=== PATIENT | male | born 1985 | race Caucasian/White ===

== ENCOUNTER 2018-02-17 15:44 | Emergency (ER) | payer SELFPAY, OTHER ==
[2018-02-17] MEDS: CHLORPROMAZINE 25 MG TAB PO (16:31)
[2018-02-17] MEDS: CHLORPROMAZINE 25 MG INJ IM (17:43)
== END 2018-02-17 18:28 | disposition home or self-care (01) ==
LOC: FTE 15:44
DX: R06.6 Hiccough (principal); J45.909 Unspecified asthma, uncomplicated; R07.9 Chest pain, unspecified
CPT/HCPCS: 71045; 93005; 96372; 99284-25